=== PATIENT | male | born 1960 | race Caucasian/White ===

== ENCOUNTER 2024-11-23 12:59 | Outpatient (CLI) | payer OTHER, SELFPAY ==
--- NOTE | ~2024-11-23 | PE_ITS ---
EXAMINATION: PET_PETPSMAST_PT DATE: 11/23/2024 15:27 INDICATION: Gastric cancer TECHNIQUE: 5.223 mCi of Illucix Ga-68([id number]) was administered i.v. Low dose computed nicolás graphy (CT) images were acquired from the base of the brain to the base of the brain to the proximal thighs for attenuation correction and anatomic localization. Positron emission tomography (PET) image s were acquired in the same distribution beginning 87 minutes after injection. Images including fused PET/CT images were reconstructed in axial, coronal, and sagittal planes. Automated exposure control technique was employed. The dose-length product was 1460.15mGy-cm. COMPARISON: None FINDINGS: Head/neck: Typical pattern of symmetric physiologic increased activity in the lacrimal, parotid and submandibula r glands as well as along the mucosa of the nasal and oral cavities, pharynx and hypopharynx. Bilater al mildly PSMA avid thyroid nodules measuring 1.4 cm with maximal SUV of 3.3 on the right and 1 cm on the left with maximal SUV of 2.3. No pathologically enlarged cervical lymphadenopathy or other suspi cious foci of increased uptake in the visualized head or neck. Chest: Mild emphysema. No suspicious pulmonary nodules, pneumonia, pulmonary edema or pleural effusion. Mild cardiomegaly. No pericardial effusion. Ectatic ascending thoracic aorta measuring up to 4.0 cm. Calc ified left hilar lymph nodes consistent with old granulomatous disease. There is prominent activity i n the soft tissues at the right antecubital fossa which is not included on the CT imaging. Abdomen/pelvis/proximal thighs: Normal degree and slightly heterogenous pattern of increased uptake throughout the liver and spleen w ithout radiologic correlate or dominant PSMA avid lesion. There are 2 small foci of increased uptake in the prostate, the more intense on the left with maximal SUV of 12.7 and with maximal SUV of 8.7 on the right consistent with primary prostate cancer. Cholecystectomy clips the gallbladder fossa. The pancreas and bilateral adrenal glands are normal. Moderate uptake scattered throughout the bowels wit h typical duodenal and proximal jejunal predominance and without radiologic correlate, also likely ph ysiologic. No other abnormal foci of increased uptake or pathologically enlarged lymphadenopathy in t he abdomen, pelvis or proximal thighs. Musculoskeletal: There is a large region of prominent activity in the region of the right antecubital fossa which per discussion with the technologist was at the site of injection. The technologist noted that a small am ount extravasation was noted at the beginning of the injection after which the needle was repositione d. There are 2 small foci of mild increased uptake, one at the lateral aspect of the upper arm with m aximal SUV 5.6 and the second at the right axilla with maximal SUV of 3.5. The former is not included within the [id number] on the CT images. The latter is associated with a right axillary lymph node with thin rim of peripheral cortex but composed primarily of central fatty hilum. These most likely represent normal lymphatic clearance of the extravasated activity. Left total shoulder arthroplasty. There are no suspicious lytic, blastic or PSMA avid bone lesions. IMPRESSION: 1. 2 foci of increased activity at the left and right sides of the prostate consistent with primary p rostate cancer. 2. Mild uptake associated with a couple small thyroid nodules which can be seen with both benign and malignant thyroid nodules. Would recommend further evaluation with thyroid ultrasound and considerati on of biopsy of at least the larger and more intensely PSMA avid right-sided nodule. 3. Extravasated activity at the right antecubital fossa with couple small foci of mild activity likel y related to normal lymphatic clearance of the extravasated activity at the proximal right upper arm and right axilla. No other lesions suspicious for metastatic disease. Reviewed, dictated and finalized at location A. R CONTROL CLERK IMPRESSION: 1. 2 foci of increased activity at the left and right sides of the prostate con sistent with primary prostate cancer. 2. Mild uptake associated with a couple small thyroid nodules which can be seen with both benign and malignant thyroid nodules. Would recommend further evalua tion with thyroid ultrasound and consideration of biopsy of at least the larger and more intensely PSMA avid right-sided nodule. 3. Extravasated activity at the right antecubital fossa with couple small foci of mild activity likely related to normal lymphatic clearance of the extravasat ed activity at the proximal right upper arm and right axilla. No other lesions suspicious for metastatic disease.
--- OUTSIDE RECORDS SUMMARY | 2024-11-23 13:18 | XMS_ITS | Clinical Summary ---
Author Organization [address] Address [address] [place] [address] Care Team Providers Care Sharepoint Application Developer Name Role Phone Seth Desai MD Primary Care Provider + [phone] Allergies No known active allergies Medications ibuprofen (ADVIL,MOTRIN) 800 mg tablet Take 1 tablet (800 mg total) by mouth 3 (three) times a day as needed for pain (pain) 90 tablet 02/20/2020 Active multivit with minerals/lutein (MULTIVITAMIN 50 PLUS ORAL) Take by mouth Active Active Problems Problem Noted Date Diagnosed Date Tinnitus of both ears 06/20/2024 Assessment & Plan (06/20/2024 12:40 PM CDT): I talked with the patient about tinnitus. Typically it is due to hearing loss but there are other potential reasons for it. It can occur due to cervical strain or TMJ disorder. Also potentially due to tumors which are usually benign. Unfortunately there is no widely accepted or successful treatment for it. There are a lot of scfm-psh-[id number] remedies which generally do not help and I really do not recommend any of them. I think his hearing loss is most likely the reason for his tinnitus. Hearing aids may be very helpful. Sensorineural hearing loss (SNHL) of both ears 0 06/20/2024 Assessment & Plan (06/20/2024 12:36 PM CDT): He has pretty significant bilateral sensorineural hearing loss which is likely due to his long history of noise exposure. I think he is a good candidate for hearing aids. He wanted to talk with the fire ranger about that. Surgical History Surgery Date Site/Laterality Comments RETINAL DETACHMENT SURGERY 10/04/2008 - 10/03/2009 TONSILLECTOMY 10/04/1965 - 10/03/1966 CHOLECYSTECTOMY 10/04/2020 - 10/03/2021 KNEE ARTHROSCOPY 10/04/2018 - 10/03/2019 Left TOTAL SHOULDER REPLACEMENT 10/04/2023 - 10/03/2024 Left Medical History Medical History Date Comments Allergic Asthma Tonsillectomy 1966 Tinnitus Family History Medical History Relation Name Comments Cancer Father Lung Cancer Mother Breast Diabetes Mother Relation Name Status Comments Father Mother Alive Social History Tobacco Use Types Packs/Day Years Used Date Smoking Tobacco: Never Alcohol Use Standard Drinks/Week Comments Yes 2 (1 standard drink = 0.6 oz pur e alcohol) Personal Safety Answer Date Recorded Getting School Help Needed Not on file 12/18 Sex and Gender Information Value Date Recorded Sex Assigned at Not on file 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 Gender Identity Not on file Sexual Orientation Not on file Obstetrics History Last Filed Vital Signs Vital Sign Reading Time Taken Comments Blood Pressure 110/72 02/21/2019 3:10 PM CDT Pulse 78 02/21/2019 3:10 PM CDT Temperature 37.1 C (98.8 F) 02/21/2019 3:10 PM CDT Respiratory Rate 18 06/20/2024 9:47 AM CDT Oxygen Saturation - - Inhaled Oxygen Concentration - - Weight 122.5 kg (270 lb) 06/20/2024 9:47 AM CDT Height 193 cm (6' 4 ) 06/20/2024 9:47 AM CDT Body Mass Index 32.87 06/20/2024 9:47 AM CDT Plan of Treatment Health Maintenance Due Date Last Done Comments Colon Cancer Screening-Colonoscopy 1961 Depression Screening 1961 Hepatitis C Screening 1961 Prostate Cancer Screening-PSA 1961 Hepatitis B Screening 1979 Regular Well Visit/Exam 18-64 1979 Pneumococcal vaccine <65 (1 of 2 - PCV) 1980 Zoster Vaccine (1 of 2) 2011 Covid-19 Vaccine (2023-2 5 season) 2024 09/05/2022, 03/14/2022, 08/30/2021, Additional history exists Influenza Vaccine (#1) 2024 DTaP/Tdap/Td Vaccine (2 - Td or Tdap) 01/15/2032 01/14/2022 Insurance [facility] Care Teams Sharepoint Application Developer Relationship Specialty Start Date End Date Seth Desai MD [address] [facility] [address] [place] [address] PCP - General Family Practice 05/29/24
--- OUTSIDE RECORDS SUMMARY | 2024-11-23 13:18 | XMS_ITS | Encounter Summary ---
Author Organization [facility] Address [address] [place] [address] Care Team Providers Care Production Sampler Name Role Phone Seth Desai MD Primary Care Provider [phone] Encounter Details Date Type Department Care Team (Late st Contact Info) Description 11/01/2024 Prep for Procedure [facility] [place] [address] Jose Alberto Griffith MD [address] [facility] [address] [facility] [place] [address] Social History Tobacco Use Types Packs/Day Years Used Date Smoking Tobacco: Never Passive Smoke Exposure: Never Smokeless Tobacco: Never Comments:Never Smoked Alcohol Use Standard Drinks/Week Comments Yes 3.3 (1 standard drin k = 0.6 oz pure alcohol) ocassionally 1-2 week at most [facility] Utilities Answer Date Recorded In the past 12 months has e electric, gas, oil, or water company threatened to shut off services in your home? No 04/05/2024 Humiliation, Afraid, Rape, and Kick questionnair e Answer Date Recorded Within the last year, have y ou been afraid of your partner or ex-partner? No 04/05/2024 Within the last year, have y ou been humiliated or emotionally abused in other ways by your partner or ex-partner? No Within the last year, have y ou been kicked, hit, slapped, or otherwise physically hurt by your partner or ex-partner? No 04/05/2024 Within the last year, have y ou been raped or forced to have any kind of sexual activity by your partner or ex-partner? No 04/05/2024 Overall Financial Resource Strain (CARDIA) Answe r Date Recorded How hard is it for you to pa y for the very basics like food, housing, medical care, and heating? Not hard at all 04/05/2024 PHQ-2 Answer Date Recorded Patient Health Questionnaire-2 Score 0 09/21/2024 Hunger Vital Sign Answer Date Recorded Within the past 12 months, y ou worried that your food would run out before you got the money to buy more. Never true 04/05/20 24 Within the past 12 months, t he food you bought just didn't last and you didn't have money to get more. Never true 04/05/2024 PRAPARE - Transportation Answer Date Re corded In the past 12 months, has l ack of transportation kept you from medical appointments or from getting medications? No 12/2023 In the past 12 months, has l ack of transportation kept you from meetings, work, or from getting things needed for daily living? No 04/05/2024 Housing Stability Vital Sign Answer Abel e Recorded In the last 12 months, was t here a time when you were not able to pay the mortgage or rent on time? No 04/05/2024 In the past 12 months, how m any times have you moved where you were living? 0 04/05/2024 At any time in the past 12 m [facility], were you homeless or living in a longterm (including now)? 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 Answer Date of Assessment Author Status No 04/05/2024 1:37 PM CDT Haylee Zavala RN Active * Do you have serious difficulty walking or climbing stairs? Answer Date of Assessment Author Status No 04/05/2024 1:37 PM OTILIOT Haylee Zavala RN Active * Do you have difficulty dressing or bathing? Answer Date of Assessment Author Status No 04/05/2024 1:37 PM CDT Haylee Zavala RN Active * Because of a physical, mental, or emotional condition, do you have difficulty doing errands alone such as visiting a doctor's office or shopping? Answer Date of Assessment Author Status No 04/05/2024 1:37 PM CDT Haylee Zavala RN Active documented as of this encounter Mental Status * Because of a physical, mental, or emotional condition, do you have serious difficulty concentrating, remembering, or making decisions? Answer Entry Date Author Status No 04/05/2024 1:37 PM OTILIOT Halyee Zavala RN Active documented in this encounter Plan of Treatment Upcoming Encounters Date Type Department Care Team (Late st Contact Info) Description 04/03/2025 8:20 AM CDT Office Visit [facility] [place] [address] [place] [address] Clif Posey MD [address] [address] [place] [address] documented as of this encounter Visit Diagnoses Not on filedocumented in this encounter Care Teams Production Sampler Relationship Specialty Start Date End Date Seth Desai MD [address] [facility] [address] [place] [address] PCP - General FAMILY PRACTICE 12/21/21 documented as of this encounter
--- OUTSIDE RECORDS SUMMARY | 2024-11-23 13:18 | XMS_ITS | Referral Summary ---
Author Organization [address] Address [address] [place] [address] Care Team Providers Care Desktop Technician Name Role Phone Seth Desai MD Primary Care Provider + [phone] Allergies No known active allergies Medications ibuprofen [...] for it. There are a lot of pcoo-utl-avosnne remedies which generally do not help and [...] aids. He wanted to talk with the thermoscrew operator about that. 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 [address] [place] [address] PCP - General Family Practice 05/29/24
--- OUTSIDE RECORDS SUMMARY | 2024-11-23 13:18 | XMS_ITS | Clinical Summary ---
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 Active multivitamin tablet Take 1 tablet by mouth daily. Active vitamin C 500 MG tablet Take 2 tablets (1,000 mg total) by mouth daily. Active VENTOLIN HFA 108 (90 Base) MCG/ACT inhaler 0 Active HYDROcodone-aquilino taminophen (NORCO) 5-325 MG tabletIndicatio ns:Acute Pain < 7 Day Supply Take 1 tablet by mouth every 4 (four) hours as needed (Moderate Pain). Indications: Acute Pain < 7 Day Supply 20 tablet 4 Active Additional Information Patient not taking.Reported on 04/20/2024 oxyCODONE-aceta minophen (PERCOCET) 5-325 MG tabletIndicatio ns:Acute Pain < 7 Day Supply Take 1 tablet by mouth every 4 (four) hours as needed (Severe Pain). Indications: Acute Pain < 7 Day Supply 20 tablet 4 Active Additional Information Patient not taking.Reported on 04/20/2024 ondansetron (ZOFRAN) 4 MG tabletIndicatio ns:S/P shoulder replacement, left Take 1 tablet (4 mg total) by mouth every 8 (eight) hours as needed for Nausea. 20 tablet 1 4 Active Additional Information Patient not taking.Reported on 04/20/2024 naloxone (NARCAN) 4 MG/0.1ML nasal sprayIndication s:S/P shoulder replacement, left 1 spray by Nasal route as needed for Opioid reversal. may repeat every 2 to 3 minutes in alternating nostrils until medical assistance becomes available 1 each 4 04/05/20 25 Active Additional Information Patient not taking.Reported on 04/20/2024 acetaminophen (TYLENOL) 325 MG tablet Take 2 tablets (650 mg total) by mouth 2 (two) times a day. Active levoFLOXacin (LEVAQUIN) 500 MG tablet Take 1 tablet (500 mg total) by mouth daily for 2 days. 2 tablet 5 11/10/19 Active Problems Patient Care Coordination No te Formatting of this note migh t be different from the original. Physical therapy precautions: none known Problem Noted Date Diagnosed Date Elevated PSA 11/08/2024 Adhesive capsulitis of left shoulder 06/01/2024 S/P shoulder replacement, left 04/04/2024 Olecranon bursitis of right elbow 03/30/2024 Osteoarthritis of left acromioclavicular joint 0 03/28/2024 Impingement syndrome of left shoulder 01/04/2024 Nontraumatic incomplete tear of left rotator cuf f 01/04/2024 Primary osteoarthritis of left shoulder 01/04/20 S/P left knee arthroscopy 10/27/2022 Other tear of medial meniscu s of left knee as current injury, subsequent encounter 10/13/2022 Primary osteoarthritis of left knee 03/14/2020 Loose body of left knee 03/14/2020 Asthma (HHS/HCC) 10/26/2017 Resolved Problems Problem Noted Date Diagnosed Date Resolved Date Wears glasses 10/26/2017 06/14/2020 Encounters Date Type Department Care Team Description 11/08/2024 8:00 AM RESTORATIVE CARE TECHNICIAN - 11/08/2024 8:46 AM [facility] [place] [address] Merrill Zepeda MD TRANSRECTAL ULTRASOUND FUSION GUIDED PROSTATE BIOPSY 11/08/2024 7:58 AM RESTORATIVE CARE TECHNICIAN Anesthesia Event [facility] [place] [address] Michael Velásquez MD Jackson, Samantha Rae, [facility] 11/08/2024 5:54 AM RESTORATIVE CARE TECHNICIAN - 11/08/2024 9:30 AM RESTORATIVE CARE TECHNICIAN Hospital Encounter [facility] [place] [address] Merrill Zepeda MD Discharge Disposition: Home or Self Care (Routine Discharge) 11/08/2024 Travel 11/02/2024 9:01 AM RESTORATIVE CARE TECHNICIAN - 11/02/2024 9:54 AM RESTORATIVE CARE TECHNICIAN Hospital Encounter [facility] [place] [address] Merrill Zepeda MD Discharge Disposition: Home or Self Care (Routine Discharge) 11/01/2024 Prep for Procedure [facility] [place] [address] Merrill Zepeda MD 11/01/[address] [facility] [place] [address] Merrill Zepeda MD 11/01/2024 Travel 10/12/2024 Scan HEALTH INFO SRVCS Scanned, [facility] 09/21/2024 8:20 AM RESTORATIVE CARE TECHNICIAN Office Visit [facility] - [place] [address] [place] [address] Clif Posey MD Follow Up (Left total shoulder 04/05/24) 09/21/2024 Scan [facility] HEALTH INFO SRVCS Scanned, [facility] 09/21/2024 Travel 08/29/2024 8:00 AM RESTORATIVE CARE TECHNICIAN Office Visit [facility] [address] [place] [address] Taty, MD Dania Muñiz Sydney N, PT Discharge Summary 08/29/2024 Travel 08/24/2024 8:45 AM RESTORATIVE CARE TECHNICIAN Office Visit [facility] [address] [place] [address] Clif Posey MD 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, 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, 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 Post Surgical ; Total Shoulder Replacement 08/24/2024 Travel from Last 3 Months Immunizations Name Administration Dates Next Due Tdap (Adacel) 01/14/2022 Family History Medical History Relation Comments Cancer Father Cancer Liver Disease Father Cancer Mother breast Diabetes Mother Relation Status Comments Father (Age 48) Mother Alive Social History Tobacco Use Types Packs/Day Years Used Date Smoking Tobacco: Never Passive Smoke Exposure: Never Smokeless Tobacco: Never Tobacco Cessation:Counseling Given: No Comments:Never Smoked Alcohol Use Standard Drinks/Week Comments Yes 3.3 (1 standard drin k = 0.6 oz pure alcohol) ocassionally 1-2 week at most [facility] Utilities Answer Date Recorded In the past 12 months has [employer], gas, oil, or water [employer] threatened to shut off services in your [...] any time in the past 12 m [facility], were you homeless or living in a longterm (including now)? No 04/05/2024 Sex and Gender Information Value Date Recorded Sex Assigned at Male 11/02/2024 8:58 AM RESTORATIVE CARE TECHNICIAN Legal Sex Male 7:24 PM CDT Gender Identity Not on file Sexual Orientation Not on file Last Filed Vital Signs Vital Sign Reading Time Taken Comments Blood Pressure 144/78 11/08/2024 9:20 AM RESTORATIVE CARE TECHNICIAN Pulse 58 11/08/2024 9:20 AM RESTORATIVE CARE TECHNICIAN Temperature 36.6 C (97.9 F) 11/08/2024 9:20 AM RESTORATIVE CARE TECHNICIAN Respiratory Rate 16 11/08/2024 9:20 AM RESTORATIVE CARE TECHNICIAN Oxygen Saturation 99% 11/08/2024 9:20 AM RESTORATIVE CARE TECHNICIAN Inhaled Oxygen Concentration - - Weight 128.1 kg (282 lb 6.6 oz) 11/08/2024 6:30 AM RESTORATIVE CARE TECHNICIAN Height 193 cm (6' 4 ) 11/08/2024 6:30 AM RESTORATIVE CARE TECHNICIAN Body Mass Index 34.38 11/08/2024 6:30 AM RESTORATIVE CARE TECHNICIAN Plan of Treatment Upcoming Encounters Date Type Department Care Team (Late st Contact Info) Description 04/03/2025 8:20 AM CDT Office Visit [facility] Medical Group [facility] & [facility] Medicine - [place] [address] [place] [address] Clif Posey MD [address] [address] [place] [address] Health Maintenance Due Date Last Done Comments Pneumococcal Vaccine: Pediatrics (0 to 5 Years) and At-Risk Patients (6 to 64 Years) (1 of 2 - PCV) 1967 Zoster Vaccines (1 of 2) 2011 RSV Immunization or 60+ Years (1 - Risk 60-74 years 1-dose series) 2021 Annual Physical 01/14/2023 01/14/2022 COVID-19 Vaccine (4 - 2023-2 5 season) 2024 08/30/2021, 12/28/2020, 12/07/2020 Influenza Adult (#1) 2024 PHQ-2 (Physician Hopi) 10/04/2024 09/21/2024 Colorectal Cancer Screening Colonoscopy (10 Years) 09/23/2025 09/23/2015 DTaP, Tdap and Td Vaccines ( 2 - Td or Tdap) 01/15/2032 01/14/2022 Hepatitis C Completed 03/07/2024 Meningococcal B Vaccine Aged Out No l onger eligible based on patient's age to complete this topic Meningococcal Vaccine Aged Out No fermin tawnya eligible based on patient's age to complete this topic RSV Immunizations Under 20 Months Aged Out No longer eligible b ased on patient's age to complete this topic Medical Devices Implanted Type Area Travel Specialist Device Identifier Shelf Expiration Date Model / Serial / Lot 3.9mm Biocomposite Achilles Speedbridge Implanted:Qty: 1 on 04/05/2024 by Clif Posey MD at [facility] Embudo Left: Shoulder [id number] 12/02/2027 AR-9928 - / / [id number] Implant Embudo Arthrex Bio Swivelock 4.75mm - [id number] Implanted:Qty: 2 on 04/05/2024 by Clif Posey MD at [facility] Embudo Left: Shoulder [employer] [id number] 01/31/2027 AR-2324 [facility] / / [id number] Implant Embudo Arthrex Bio Swivelock 4.75mm - [id number] Implanted:Qty: 1 on 04/05/2024 by Clif Posey MD at [facility] Embudo Left: Shoulder [employer] [id number] 11/03/2027 AR-2324 [facility] / / [id number] Cement Full Dose - [id number] Implanted:Qty: 1 on 04/05/2024 by Clif Posey MD at [facility] Cement Implant Left: Shoulder [employer] - DIV ALESSANDRO MICHELLE [id number] 01/31/2026 6191-1- 001 / / [id number] Cement Bone Tobramycin Simplex - [id number] Implanted:Qty: 1 on 04/05/2024 by Clif Posey MD at [facility] Cement Implant Left: Shoulder [employer] - DIV ALESSANDRO MICHELLE [id number] 01/01/2025 6197-9- 010 / / [id number] Eclipse Cage Screw Implanted:Qty: 1 on 04/05/2024 by Clif Posey MD at [facility] Shoulder Components Left: Shoulder [employer] [id number] 02/01/2028 AR-9301 -04 / / [id number] 0 Inhance Shoulder System Anatomic Glenoid Large X-Linked Vitamin E Implanted:Qty: 1 on 04/05/2024 by Clif Posey MD at [facility] Shoulder Components Left: Shoulder DEPUY [id number] 10/03/2028 5100-29 -000 / / [id number] Eclipse Trunion Implanted:Qty: 1 on 04/05/2024 by Clif Posey MD at [facility] Shoulder Components Left: Shoulder [employer] [id number] 03/03/2028 AR-9301 -37CPC / / 23.0134 1 Eclipse Humeral Head Implanted:Qty: 1 on 04/05/2024 by Clif Posey MD at [facility] Shoulder Components Left: Shoulder [employer] [id number] 12/02/2027 AR-9349 -20 / / [id number] Procedures Procedure Name Priority Date/Time Associated Diagnosis Comments BIOPSY OF PROSTATE,NEEDLE/PUNCH 11/08/2024 7:58 AM RESTORATIVE CARE TECHNICIAN ELEVATED PROSTATE SPECIFIC ANTIGEN R97.20 Case Notes SCHED BY FAX 10/26/2024 LCS PHONE ASSESS Special Needs FORTEC TO BE ARRANGED BY OFFICE PATHOLOGY Routine 11/08/2024 12:00 AM RESTORATIVE CARE TECHNICIAN PROSTATE SPECIFIC ANTIGEN,TOTAL Routine 11/02/2024 9:15 AM RESTORATIVE CARE TECHNICIAN Elevated PSA PARTIAL THROMBOPLASTIN TIME,PTT Routine 11/02/2024 9:15 AM RESTORATIVE CARE TECHNICIAN Elevated PSA PROTHROMBIN TIME, VENOUS Routine 11/02/2024 9:15 AM RESTORATIVE CARE TECHNICIAN Elevated PSA BASIC METABOLIC PANEL Routine 11/02/2024 9:15 AM RESTORATIVE CARE TECHNICIAN Elevated PSA CBC W/DIFF AUTOMATED STAT 11/02/2024 9:15 AM RESTORATIVE CARE TECHNICIAN Elevated PSA URINE BACTERIA CULTURE Routine 11/02/2024 9:14 AM RESTORATIVE CARE TECHNICIAN Elevated PSA HC URINALYSIS AUTO W/O MICRO Routine 11/02/2024 9:14 AM RESTORATIVE CARE TECHNICIAN Elevated PSA HEPATITIS C ANTIBODY Routine 03/07/2024 12:32 PM CDT Healthcare maintenance Need for hepatitis C screening test COLONOSCOPY GENERIC (SCAN ORDER) 09/23/2015 from Last 3 Months or Most Recently Relevant to Health Maintenance Results * Pathology (11/08/2024 12:00 AM RESTORATIVE CARE TECHNICIAN) PATHOLOGY [facility] Department of Laboratory Medicine [address] [place] [id number] , extension [phone] Pathology Report Surgical Pathology Report Name: BENJA COKER Specimen #: [id number] Age: 10 1960 (Age: 64) Location: [facility] Sex: M Procedure Date: 11/08/2024 Hospital #: [id number] Date Received: 11/08/2024 Date Reported: 11/09/2024 Provider: MERRILL ZEPEDA MD Source: A: Prostate, left lateral base, needle biopsy B: Prostate, left base, needle biopsy C: Prostate, left lateral mid, needle biopsy D: Prostate, left medial mid, needle biopsy E: Prostate, left lateral apex, needle biopsy F: Prostate, left medial apex, needle biopsy G: Prostate, right lateral base, needle biopsy H: Prostate, right base, needle biopsy I: Prostate, right lateral mid, needle biopsy J: Prostate, right medial mid, needle biopsy K: Prostate, right lateral apex, needle biopsy L: Prostate, right medial apex, needle biopsy M: Prostate, OCTAVIO #1, needle biopsy N: Prostate, OCTAVIO #2, needle biopsy O: Prostate, OCTAVIO #3, needle biopsy Clinical History: Elevated PSA. FINAL DIAGNOSIS: A. Left lateral base of prostate, biopsy: Benign prostate tissue. B. Left base of prostate, biopsy: Benign prostate tissue. C. Left lateral mid prostate, biopsy: Small focus of prostatic adenocarcinoma, Luiz grade 3+3 (score 6/10), grade group 1; involving 5% of one core. D. Left medial mid prostate, biopsy: Benign prostate tissue. E. Left lateral apex of prostate, biopsy: Prostatic adenocarcinoma, Van Lear grade 4+3 (score 7/10), grade group 3; involving 70% of one core. F. Left medial apex of prostate, biopsy: Prostatic adenocarcinoma, Van Lear grade 3+4 (score 7/10), grade group 2; involving 25% of one core. G. Right lateral base of prostate, biopsy: Prostatic adenocarcinoma, Van Lear grade 3+4 (score 7/10), grade group 2; involving 95% of one core. H. Right base of prostate, biopsy: Prostatic adenocarcinoma, Luiz grade 4+3 (score 7/10), grade group 3; involving 60% of one core. I. Right lateral mid prostate, biopsy: Prostatic adenocarcinoma, Van Lear grade 3+4 (score 7/10), grade group 2; involving 10% of one core. J. Right medial mid prostate, biopsy: Prostatic adenocarcinoma, Luiz grade 3+4 (score 7/10), grade group 2; involving 10% of one core. K. Right lateral apex of prostate, biopsy: Benign prostate tissue. L. Right medial apex of prostate, biopsy: Prostatic adenocarcinoma, Luiz grade 3+3 (score 6/10), grade group 1; involving 5% of one core. M. OCTAVIO #1 of prostate, biopsy: Prostatic adenocarcinoma, Luiz grade 3+3 (score 6/10), grade group 1; involving three cores and 10% of tissue. N. OCTAVIO #2 of prostate, biopsy: Prostatic adenocarcinoma, Luiz grade 4+3 (score 7/10), grade group 3; involving three cores and 30% of tissue. O. OCTAVIO #3 of prostate, biopsy: Prostatic adenocarcinoma, Luiz grade 3+3 (score 6/10), grade group 1; involving 50% of one core. Comment: CASE SUMMARY: (Prostate Gland: Needle Biopsy) Positive Specimen Location: Bilateral lobes Histologic Type: Acinar adenocarcinoma Histologic Grade: Van Lear grade 4+3 (score 7/10), Grade group 3 Intraductal Carcinoma (IDC): Not identified Tumor Quantitation: Total Number of Cores: 24 Number of Positive Cores: 15 Periprostatic Fat Invasion: Not identified Seminal Vesicle Invasion: Not identified Lymphovascular Invasion: Not identified Perineural Invasion: Not identified Gross Description: A. Received in formalin, labeled with a patient label and as left base lateral is a single less than 0.1 cm in diameter delicate white-appiah tissue core that is 1.3 cm in length. The specimen is entirely submitted in cassette A1. B. Received in formalin, labeled with a patient label and as left base is a single less than 0.1 cm in diameter delicate white-appiah tissue core that is 1.0 cm in length. The specimen is entirely submitted in cassette B1. C. Received in formalin, labeled with a patient label and as left mid lateral are 2 less than 0.1 cm in diameter delicate white-appiah tissue cores 0.5 and 0.7 cm in length. The specimen is entirely submitted in cassette C1. D. Received in formalin, labeled with a patient label and as left mid medial is a single less than 0.1 cm in diameter delicate pink-appiah tissue core that is 0.5 in length. The specimen is entirely submitted in cassette D1. E. Received in formalin, labeled with a patient label and as left apex lateral are 2 less than 0.1 cm in diameter delicate pink-appiah tissue cores 0.2 and 0.3 cm in length. The specimen is entirely submitted in cassette E1. F. Received in formalin, labeled with a patient label and as left apex medial are 2 less than 0.1 cm in diameter delicate pink-appiah tissue cores 0.3 and 0.4 cm in length. The specimen is entirely submitted in cassette F1. G. Received in formalin, labeled with a patient label and as right face lateral are 2 less than 0.1 cm in diameter delicate white-appiah tissue cores that are each 0.5 cm in length. The specimen is entirely submitted in cassette G1. H. Received in formalin, labeled with a patient label and as right base is a single less than 0.1 cm in diameter delicate white-appiah tissue core that is 1.5 cm in length. The specimen is entirely submitted in cassette H1. I. Received in formalin, labeled with a patient label and as right mid lateral is a single less than 0.1 cm in diameter delicate white-appiah tissue core that is 1.5 cm in length. The specimen is entirely submitted in cassette I1. J. Received in formalin, labeled with a patient label and as right mid medial is a single less than 0.1 cm in diameter delicate white-appiah tissue core that is 1.5 cm in length. The specimen is entirely submitted in cassette J1. K. Received in formalin, labeled with a patient label and as right apex lateral is a single less than 0.1 cm in diameter delicate pink-appiah tissue core that is 1.0 cm in length. The specimen is entirely submitted in cassette K1. L. Received in formalin, labeled with a patient label and as right apex medial is a single less than 0.1 cm in diameter delicate white-appiah tissue core that is 1.0 cm in length. The specimen is entirely submitted in cassette L1. M. Received in formalin, labeled with a patient label and as OCTAVIO #1 are 3 less than 0.1 cm in diameter delicate white-appiah tissue cores that are each 1.0 cm in length. The specimen is entirely submitted in cassette M1. N. Received in formalin, labeled with a patient label and as OCTAVIO #2 are 4 less than 0.1 cm in diameter delicate pink-appiah tissue cores that range from 0.4 to 0.6 cm in length. The specimen is entirely submitted in cassette N1. O. Received in formalin, labeled with a patient label and as OCTAVIO #3 are 3 less than 0.1 cm in diameter delicate pink-appiah tissue cores that range from 0.3 to 0.7 cm in length. The specimen is entirely submitted in cassette O1. Gross examination (when applicable) was performed at [facility], [address] [place] [address]. This case was interpreted and signed out at [facility] [address] [place] [address]. Electronically Signed Out KERI KEENE MD [facility] TISSUE PROSTATIC STRUCTURE / Unknown 11/08/2024 7:27 AM RESTORATIVE CARE TECHNICIAN Tissue specimen (specimen) PROSTATIC STRUCTURE / Unknown 11/08/2024 7:27 AM RESTORATIVE CARE TECHNICIAN Tissue specimen (specimen) PROSTATIC STRUCTURE / Unknown 11/08/2024 7:27 AM RESTORATIVE CARE TECHNICIAN Tissue specimen (specimen) PROSTATIC STRUCTURE / Unknown 11/08/2024 7:27 AM RESTORATIVE CARE TECHNICIAN Tissue specimen (specimen) PROSTATIC STRUCTURE / Unknown 11/08/2024 7:27 AM RESTORATIVE CARE TECHNICIAN Tissue specimen (specimen) PROSTATIC STRUCTURE / Unknown 11/08/2024 7:27 AM RESTORATIVE CARE TECHNICIAN Tissue specimen (specimen) PROSTATIC STRUCTURE / Unknown 11/08/2024 7:27 AM RESTORATIVE CARE TECHNICIAN Tissue specimen (specimen) PROSTATIC STRUCTURE / Unknown 11/08/2024 7:27 AM RESTORATIVE CARE TECHNICIAN Tissue specimen (specimen) PROSTATIC STRUCTURE / Unknown 11/08/2024 7:27 AM RESTORATIVE CARE TECHNICIAN Tissue specimen (specimen) PROSTATIC STRUCTURE / Unknown 11/08/2024 7:27 AM RESTORATIVE CARE TECHNICIAN Tissue specimen (specimen) PROSTATIC STRUCTURE / Unknown 11/08/2024 7:27 AM RESTORATIVE CARE TECHNICIAN Tissue specimen (specimen) PROSTATIC STRUCTURE / Unknown 11/08/2024 7:27 AM RESTORATIVE CARE TECHNICIAN Tissue specimen (specimen) PROSTATIC STRUCTURE / Unknown 11/08/2024 7:27 AM RESTORATIVE CARE TECHNICIAN Tissue specimen (specimen) PROSTATIC STRUCTURE / Unknown 11/08/2024 7:27 AM RESTORATIVE CARE TECHNICIAN Tissue specimen (specimen) PROSTATIC STRUCTURE / Unknown 11/08/2024 7:30 AM RESTORATIVE CARE TECHNICIAN us Merrill Zepeda MD PATHOLOGY/CYTOLOGY ORDERA BLES Final Result [facility] [address] [place] [address], [place] [phone] [id number] * PTT, PARTIAL THROMBOPLASTIN TIME (11/02/2024 9:15 AM RESTORATIVE CARE TECHNICIAN) PTT 31.4 25.1 - 36.5 SEC 11/02/2024 10:12 AM RESTORATIVE CARE TECHNICIAN [facility] 11/02/2024 9:15 AM RESTORATIVE CARE TECHNICIAN Merrill Zepeda MD LABORATORY Final Res ult Performing Organization Address City/[facility]/ZIP Co de Phone Number [facility] [address] [place] [address], [place] [phone] * PROTIME/INR, VENOUS (11/02/2024 9:15 AM RESTORATIVE CARE TECHNICIAN) PROTIME 10.7 10.2 - 12.9 SEC 11/02/2024 10:12 AM RESTORATIVE CARE TECHNICIAN [facility] INR 0.9 11/02/2024 10:12 AM RESTORATIVE CARE TECHNICIAN [facility] Comment: Recommended INR Therapeutic Goals: 2.0-3.0 Routine Therapy 2.5-3.5 Mechanical Prosthetic Valves (High Risk) 11/02/2024 9:15 AM RESTORATIVE CARE TECHNICIAN Merrill Zepeda MD LABORATORY Final Res ult [facility] [address] [place] [address], [place] [phone] * (ABNORMAL) PROSTATE SPECIFIC ANTIGEN,TOTAL (11/02/2024 9:15 AM RESTORATIVE CARE TECHNICIAN) PSA 8.33(H) <4.00 NG/ML 11/02/2024 11:09 AM RESTORATIVE CARE TECHNICIAN [facility] Comment: Test was performed using the Siemens method. Results obtained with other assay methods or kits cannot be used interchangeably with results obtained by the Siemens method. 11/02/2024 9:15 AM RESTORATIVE CARE TECHNICIAN us Merrill Zepeda MD LABORATORY Final Res ult [facility] [address] [place] [address], * (ABNORMAL) BASIC METABOLIC PANEL (11/02/2024 9:15 AM RESTORATIVE CARE TECHNICIAN) GLUCOSE 110(H) 70 - 99 MG/DL 11/02/2024 10:02 AM [facility] BUN 17 7 - 18 MG/DL 11/02/2024 10:02 AM [facility] CREATININE S/P/B 0.81 0.7 - 1.3 MG/DL 11/02/2024 10:02 AM [facility] SODIUM S/P/B 138 136 - 145 MMOL/L 11/02/2024 10:02 AM [facility] POTASSIUM S/P/B 4.1 3.5 - 5.1 MMOL/L 11/02/2024 10:02 AM [facility] CHLORIDE S/P/B 107 97 - 115 MMOL/L 11/02/2024 10:02 AM [facility] CO2 26.8 21 - 32 MMOL/L 11/02/2024 10:02 AM [facility] CALCIUM S/P/B 9.3 8.5 - 10.1 MG/DL 11/02/2024 10:02 AM [facility] ANION GAP 4.2 2 - 10 MMOL/L 11/02/2024 10:02 AM [facility] BUN CREATININE RATIO 21.0 6 - 26 11/02/2024 10:02 AM [facility] GFR ESTIMATE >90 >90 ML/MIN/1.7 3 M2 11/02/2024 10:02 AM [facility] Comment: NOTE: eGFR is not calculated for patients <18 years of age or gender unknown. This is an estimated GFR calculation using the new CKD EPI creatinine equation without race and so does not require a correction factor for race. This estimated GFR should not be used for calculating drug doses. 11/02/2024 9:15 AM RESTORATIVE CARE TECHNICIAN us Merrill Zepeda MD LABORATORY Final Res ult [facility] [address] [address], [place] [phone] * CBC W/DIFF AUTOMATED (11/02/2024 9:15 AM RESTORATIVE CARE TECHNICIAN) WBC 5.18 4.5 - 11.0 x10'3/uL 11/02/2024 9:52 AM [facility] RBC 5.12 4.70 - 6.10 x10'6/uL 11/02/2024 9:52 AM [facility] HGB 15.2 14.0 - 18.0 G/DL 11/02/2024 9:52 AM [facility] HCT 45.1 43.0 - 54.0 % 11/02/2024 9:52 AM [facility] MCV 88.1 80.0 - 94.0 FL 11/02/2024 9:52 AM [facility] MCH 29.7 27.0 - 31.0 PG 11/02/2024 9:52 AM [facility] MCHC 33.7 32.0 - 36.0 G/DL 11/02/2024 9:52 AM [facility] RDW 13.0 11.5 - 14.5 % 11/02/2024 9:52 AM [facility] PLT 228 130 - 400 x10'3/uL 11/02/2024 9:52 AM [facility] MPV 10.0 9.3 - 12.2 FL 11/02/2024 9:52 AM [facility] DIFFERENTIAL TYPE AUTOMATED DIFFERENTIAL 11/02/2024 9:52 AM [facility] NEUTROPHILS % 57.7 % 11/02/2024 9:52 AM [facility] LYMPHOCYTES % 29.7 % 11/02/2024 9:52 AM [facility] MONOCYTES % 8.9 % 11/02/2024 9:52 AM [facility] EOSINOPHILS 2.3 % 11/02/2024 9:52 AM [facility] BASOPHILS 1.0 % 11/02/2024 9:52 AM [facility] IMMATURE GRANS % 0.4 % 11/02/19 9:52 AM [facility] ABS. NEUTROPHILS 2.99 1.80 - 7.70 x10'3/uL 11/02/2024 9:52 AM [facility] ABS. LYMPHOCYTES 1.54 1.00 - 4.80 x10'3/uL 11/02/2024 9:52 AM [facility] ABS. MONOCYTES 0.46 0.30 - 0.82 x10'3/uL 11/02/2024 9:52 AM [facility] ABS. EOSINOPHILS 0.12 0.04 - 0.54 x10'3/uL 11/02/2024 9:52 AM [facility] ABS. BASOPHILS 0.05 0.01 - 0.08 x10'3/uL 11/02/2024 9:52 AM [facility] ABS. IMMATURE GRANULOCYTES 0.02 0.00 - 0.49 x10'3/uL 11/02/2024 9:52 AM [facility] 11/02/2024 9:15 AM RESTORATIVE CARE TECHNICIAN us Merrill Zepeda MD LABORATORY Final Res ult [facility] [address] [place] [address], * URINALYSIS (11/02/2024 9:14 AM RESTORATIVE CARE TECHNICIAN) SPECIMEN TYPE URINE CLEAN CATCH 11/02/2024 9:38 AM [facility] COLOR (U) LIGHT YELLOW 11/02/2024 9:50 AM [facility] TRANSPARENCY CLEAR 11/02/2024 9:50 AM [facility] SPECIFIC GRAVITY (U) 1.013 1.001 - 1.030 11/02/2024 9:50 AM [facility] U PH 6.0 5.0 - 9.0 11/02/2024 9:50 AM [facility] LEUKOCYTES (U) NEGATIVE NEGATIVE 11/02/2024 9:50 AM [facility] NITRITES NEGATIVE NEGATIVE 11/02/2024 9:50 AM [facility] PROTEIN RANDOM (U) NEGATIVE <30 MG/DL 11/02/2024 9:50 AM [facility] GLUCOSE (U) NORMAL NORMAL MG/DL 11/02/2024 9:50 AM [facility] KETONES MG/DL (U) NEGATIVE NEGATIVE MG/DL 11/02/2024 9:50 AM RESTORATIVE CARE TECHNICIAN [facility] UROBILINOGEN NORMAL NORMAL MG/DL 11/02/2024 9:50 AM RESTORATIVE CARE TECHNICIAN [facility] BILIRUBIN (U) NEGATIVE NEGATIVE MG/DL 11/02/2024 9:50 AM RESTORATIVE CARE TECHNICIAN [facility] BLOOD (U) NEGATIVE NEGATIVE 11/02/2024 9:50 AM RESTORATIVE CARE TECHNICIAN [facility] URINE SPECIMEN OBTAINED BY CLEAN CATCH PROCEDURE / Unknown 11/02/2024 9:14 AM RESTORATIVE CARE TECHNICIAN Merrill Zepeda MD URINE ORDERABLES Final Re sult Performing Organization Address [facility] Co de Phone Number [facility] [address] [place] [id number], * URINE BACTERIA CULTURE (11/02/2024 9:14 AM RESTORATIVE CARE TECHNICIAN) Pathologist [facility] SPEC DESCRIPTION URINE CLEAN CATCH 11/02/2024 9:38 AM RESTORATIVE CARE TECHNICIAN [facility] SPECIAL REQUESTS NO SPECIAL REQUEST 11/02/2024 9:38 AM RESTORATIVE CARE TECHNICIAN [facility] CULTURE RESULT NO GROWTH 2 DAYS 11/04/2024 8:22 AM RESTORATIVE CARE TECHNICIAN [facility] URINE SPECIMEN OBTAINED BY CLEAN CATCH PROCEDURE / Unknown 11/02/2024 9:14 AM RESTORATIVE CARE TECHNICIAN 11/02/2024 9:45 AM RESTORATIVE CARE TECHNICIAN Merrill Zepeda MD MICROBIOLOGY - GENERAL OR DERABLES Final Result Performing Organization Address City/[facility]/ZIP Co de Phone Number [facility] [address] [place] [id number], [place] [phone] * HEPATITIS C ANTIBODY (03/07/2024 12:32 PM CDT) Pathologist [facility] HEPATITIS C AB NON-REACTI VE NON-REACTI VE 03/07/2024 2:13 PM CDT [facility] 03/07/2024 12:3 2 PM CDT Seth Desai MD LABORATORY Final Result [facility] [address] [place] [address], * COLONOSCOPY GENERIC (09/23/2015) 09/23/2015 Narrative 09/23/2015 Ordered by an unspecified provider. 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
== END 2024-11-23 13:00 | disposition home or self-care (01) ==
LOC: ANHIMG 13:02
PROVIDERS: Visit Provider Urology
DX: C61 Malignant neoplasm of prostate (principal)
CPT/HCPCS: 78815; A9596